=== PATIENT | male | born 1990 | race African-American/Black ===

== ENCOUNTER 2017-07-25 11:45 | Emergency (ER) | payer OTHER ==
[2017-07-25] MEDS ORDERED: Acetaminophen 325 MG Tab PO ONE (11:58)
[2017-07-25] MEDS ORDERED: Ondansetron 4 MG Tab.DIS PO ONE (11:58)
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
--- NOTE | 2017-07-26 13:12 | CT ---
Head CT Technique: Multiple axial sections of the brain were obtained. Intravenous contrast was not utilized. Comparison: No prior intracranial imaging. Findings: Ventricles along with basal cisterns and sulci over the convexities are within normal limits for the patient's age. No abnormal parenchymal densities are seen. No evidence of intracranial hemorrhage. No midline shift or mass effect is seen. No acute calvarial abnormality is seen. Visualized sinuses are clear. Impression: 1. Nothing acute is seen on noncontrast head CT exam. Diagnostic code #1 Agree with preliminary report issued by [facility] ([facility] preliminary report dictated on 07/25/17, 1:58 PM Central Time)
== END 2017-07-25 14:00 | disposition home or self-care (01) ==
LOC: JD.ED 11:45
DX: S06.0X9A Concussion with loss of consciousness of unspecified duration, initial encounter (principal); V89.2XXA Person injured in unspecified motor-vehicle accident, traffic, initial encounter
CPT/HCPCS: 70450; 99285; A9270; 99283